=== PATIENT | male | born 2000 | race Caucasian/White ===

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

== ENCOUNTER 2023-07-15 20:11 | Emergency (ER) | payer BC ==
[~2023-07-15] VITALS: Ht 193 cm; Wt 102.0 kg
[~2023-07-15 20:11] MED LIST changes: +HYDROCO/APAP1 TA9 PO
[2023-07-15 21:11] LABS: BASO% 0.2 % (0-3); EOS% 0.2 % (0-8); IMMATURE GRANULOCYTES 0.4 % (0.0-5.0); MEAN CELL VOLUME 86.7 fL CALC (80.0-100.0); MEAN CORPUSCULAR HGB 29.4 pG CALC (26.0-32.0); MEAN CORPUSCULAR HGB CONC 33.9 g/dL CAL (32.0-36.0); MONO% 12.6 % (2-13); NEUT# 4.15 thou/uL (1.82-7.42); NEUT% 72.6 % (42-76); RED BLOOD COUNT 5.34 mill/uL (4.70-6.10); RED CELL DISTRI WIDTH 12.5 % (11.5-15.5)
[2023-07-15 21:13] LABS: HEMATOCRIT 46.3 % (39.0-50.0); HEMOGLOBIN 15.7 g/dl (14.0-18.0)
[2023-07-15] MEDS ORDERED: TAM75CAP PO (21:31)
[2023-07-15 21:33] VITALS: BP 131/84
== END 2023-07-15 21:40 | disposition home or self-care (01) | DRG 195 ==
LOC: ED 20:11
PROVIDERS: Family Medicine
DX: J10.1 Influenza due to other identified influenza virus with other respiratory manifestations (principal); Z20.822 Contact with and (suspected) exposure to COVID-19